=== PATIENT | male | born 1990 ===

== ENCOUNTER 2020-03-02 03:35 | Emergency (ER) | payer SELFPAY ==
[2020-03-02 07:58] VITALS: BP 150/98
--- NOTE | 2020-03-02 08:06 | Emergency Department Report ---
- General Chief Complaint: Sore Throat Stated Complaint: SOB/HARD TO SWALLOW/THROAT PAIN Time Seen by Provider: 03/02/20 07:11 Source: patient Mode of arrival: Ambulatory Limitations: No Limitations - History of Present Illness Initial Comments: 29 yr old male presents to ED c/o sore throat. Onset 2 days ago. He reports pain with swallowing which causes him to have difficulty swallowing. He also reports hoarse voice. He denies any drooling, trismus, fever, chills, body aches, rhinorrhea, cough or nasal congestion. He denies ill contacts. He reports hx of strep and states feels similar. MD Complaint: sore throat -: Sudden, days(s) (2) Severity scale (0 -10): 10 Quality: sharp Consistency: constant Improves With: nothing Worsens With: other (Swallowing) - Related Data Previous Rx's Medication Instructions Recorded Last Taken Type Amoxicillin [Trimox CAP] 500 mg PO Q12H #20 capsule 03/02/20 Unknown Rx Ketorolac [Toradol] 10 mg PO Q6H PRN #20 tablet 03/02/20 Unknown Rx methylPREDNISolone [Medrol 4MG 4 mg PO DAILY #1 tab.ds.pk 03/02/20 Unknown Rx DOSEPAK (21 tabs)] Allergies Allergy/AdvReac Type Severity Reaction Status Date / Time No Known Allergies Allergy Verified 03/02/20 07:12 ED Review of Systems ROS: Stated complaint: SOB/HARD TO SWALLOW/THROAT PAIN Other details as noted in HPI Constitutional: denies: chills, diaphoresis ENT: throat pain. denies: ear pain, congestion Respiratory: denies: cough, shortness of breath, SOB with exertion, SOB at rest, wheezing Cardiovascular: denies: chest pain, palpitations Gastrointestinal: denies: abdominal pain, nausea, diarrhea Musculoskeletal: denies: back pain, joint swelling, arthralgia Neurological: denies: headache, weakness, paresthesias ED Past Medical Hx - Past Medical History Previous Medical History?: No - Surgical History Past Surgical History?: No - Social History Smoking Status: Former Smoker Substance Use Type: None - Medications Home Medications: Home Medications Medication Instructions Recorded Confirmed Last Taken Type Amoxicillin [Trimox CAP] 500 mg PO Q12H #20 capsule 03/02/20 Unknown Rx Ketorolac [Toradol] 10 mg PO Q6H PRN #20 tablet 03/02/20 Unknown Rx methylPREDNISolone [Medrol 4MG 4 mg PO DAILY #1 tab.ds.pk 03/02/20 Unknown Rx DOSEPAK (21 tabs)] ED Physical Exam - General Limitations: No Limitations General appearance: alert, in no apparent distress - Head Head exam: Present: atraumatic, normocephalic, normal inspection - ENT ENT exam: Present: mucous membranes moist - Expanded ENT Exam Expanded Mouth exam: Present: normal external inspection. Absent: drooling, trismus, tongue normal, tongue elevation Throat exam: Positive: tonsillar erythema, tonsillomegaly. Negative: tonsillar exudate, R peritonsillar mass, L peritonsillar mass - Neck Neck exam: Present: normal inspection, lymphadenopathy (anterior cervical ). Absent: meningismus - Respiratory Respiratory exam: Absent: respiratory distress - Cardiovascular Cardiovascular Exam: Present: regular rate - Neurological Exam Neurological exam: Present: alert, oriented X3, CN II-XII intact - Skin Skin exam: Present: intact ED Course Vital Signs 03/02/20 03/02/20 03/02/20 03:42 07:57 08:25 Temperature 98.2 F Pulse Rate 67 67 Respiratory 18 16 16 Rate Blood Pressure 132/86 Blood Pressure 150/98 [Left] O2 Sat by Pulse 97 99 Oximetry Critical care attestation.: If time is entered above; I have spent that time in minutes in the direct care of this critically ill patient, excluding procedure time. ED Disposition Clinical Impression: Tonsillitis Disposition: DC-01 TO HOME OR SELFCARE Is pt being admited?: No Does the pt Need Aspirin: No Condition: Stable Instructions: Tonsillitis (ED) Additional Instructions: Recommend that you take antibiotics as prescribed. Recommend lots of liquids and soft diet for the 1-2 days. I recommend close f/u with PCP. Return to ED if worse. Prescriptions: methylPREDNISolone [Medrol 4MG DOSEPAK (21 tabs)] 4 mg PO DAILY #1 tab.ds.pk Ketorolac [Toradol] 10 mg PO Q6H PRN #20 tablet PRN Reason: Pain Amoxicillin [Trimox CAP] 500 mg PO Q12H #20 capsule Referrals: MICHAELA CRAIG MD [Staff Physician] - 3-5 Days Forms: Work/School Release Form(ED) Time of Disposition: 08:16
[2020-03-02] MEDS ORDERED: KETOROLAC 60 MG/2 ML INJ IM ONE (08:16)
[2020-03-02] MEDS ORDERED: dexAMETHasone 20 MG/5 ML VIAL IM ONE (08:16)
== END 2020-03-02 08:48 | disposition home or self-care (01) ==
LOC: ED 03:35
DX: J03.90 Acute tonsillitis, unspecified (principal); Z79.899 Other long term (current) drug therapy; Z87.891 Personal history of nicotine dependence
CPT/HCPCS: 96372; 99282; J1100; J1885